=== PATIENT | female | born 1960 | race Caucasian/White ===

== ENCOUNTER → 2019-02-08 | Outpatient (CLI) | payer MEDICARE, OTHER ==
[2015-07-11 23:59] VITALS: BP 118/52
[~2019-02-08] MED LIST: ALBU2.5V14 NEB; ALBU2.5V8 IH; FLUT1DIS IH; IOHEXOL 240 MG/ML 50ML VIAL. PO ONE; WARF6TAB49 PO
--- NOTE | 2019-02-08 15:27 | RAD ---
CT ABDOMEN WO CONTRAST Indication: Ventral hernia Technique: Noncontrast CT imaging was performed of the abdomen, multiplanar reconstruction images submitted. Oral contrast was given. Pelvis was not imaged. One or more of the following individualized dose reduction techniques were utilized for this examination: 1. Automated exposure control 2. Adjustment of the mA and/or kV according to patient size 3. Use of iterative reconstruction technique. Comparison: None Findings: There is no abnormality of the limited visualized lung bases. No significant focal abnormality identified of the liver, spleen, pancreas allowing for noncontrast technique. There is no adrenal nodularity. There has been cholecystectomy. There is very mild hepatic steatosis. There is no significant adrenal nodularity. Bowel is not significantly dilated. There is no free air or free fluid in the visualized abdomen, pelvis not imaged. There is inferior vena cava filter, limbs tips projecting about the expected luminal margin. There is no bowel containing hernia. There is mild anterior bulging of the ventral fascia more centrally above the level of the umbilicus. IMPRESSION: 1. There is no bowel containing hernia, no acute abnormality identified. 2. There is inferior vena cava filter filter as stated. Electronically signed by: Moshe Cook MD (02/08/2019 3:24 PM) [id number]
== END | disposition home or self-care (01) ==
LOC: CT 10:01 → EDBD 10:01
PROVIDERS: ATTEND Family Medicine
DX: K76.0 Fatty (change of) liver, not elsewhere classified (principal); K43.9 Ventral hernia without obstruction or gangrene; Z90.49 Acquired absence of other specified parts of digestive tract
CPT/HCPCS: 74150; Q9966